=== PATIENT | female | born 1980 | race African-American/Black ===

== ENCOUNTER 2019-11-26 21:09 | Inpatient (IN) | payer MEDICAID ==
[~2019-11-26] VITALS: Ht 175.3 cm; Wt 79.5 kg
--- NOTE | 2019-11-26 21:49 | PHYS DOC ---
Past Medical History Past Medical History: No Pertinent History Past Surgical History: No Surgical History Smoking Status: Current Every Day Smoker Alcohol Use: Heavy Additional Information: Pt verbalized 5th of Vodka a day and 3-4 beers a days too. Social History Narrative: Attepmted to stop drinking by smoking weed General Adult EDM: Chief Complaint: WITHDRAWL HPI: HPI: Patient is a 39 year old female who is a daily drinker with her last drink around 1400 hrs. presents with a chief complaint of alcohol withdrawal. On exam patient with a tremor heart rate is in the 140s and she is dry heaving. Patient states she is trying to stop drinking. She states her last alcohol withdrawal was several months ago. Patient denies any history of alcohol withdrawal seizures. Significant other admitted to [facility] today for alcohol withdrawal. On initial exam heart rate in the 140's and patient dry heaving with diffuse tremor. Review of Systems: Review of Systems: Constitutional: Denies fever or chills. [] Eyes: Denies change in visual acuity. [] HENT: Denies nasal congestion or sore throat. [] Respiratory: Denies cough or shortness of breath. [] Cardiovascular: Denies chest pain or edema. [] GI: Denies abdominal pain, bloody stools or diarrhea. [Positive nausea posit hernan vomiting] : Denies dysuria. [] Musculoskeletal: Denies back pain or joint pain. [] Integument: Denies rash. [] Neurologic: Denies headache, focal weakness or sensory changes. [Positive tremor] Endocrine: Denies polyuria or polydipsia. [] Lymphatic: Denies swollen glands. [] Psychiatric: Denies depression or anxiety. [] Heart Score: Risk Factors: Risk Factors: DM, Current or recent (<one month) smoker, HTN, HLP, family history of CAD, obesity. Risk Scores: Score 0 - 3: 2.5% MACE over next 6 weeks - Discharge Home Score 4 - 6: 20.3% MACE over next 6 weeks - Admit for Clinical Observation Score 7 - 10: 72.7% MACE over next 6 weeks - Early Invasive Strategies Allergies: Allergies: Allergies Coded Allergies Type Severity Reaction Last Updated Verified No Known Drug Allergies 11/26/19 No Physical Exam: PE: Constitutional: Well developed, well nourished, no acute distress, non-toxic appearance. [] HENT: Normocephalic, atraumatic, bilateral external ears normal, oropharynx moist, no oral exudates, nose normal. [Clear nasal drainage] Eyes: PERRLA, EOMI, conjunctiva normal, no discharge. [] Neck: Normal range of motion, no tenderness, supple, no stridor. [] Cardiovascular: no murmur [tachycardic] Lungs & Thorax: Bilateral breath sounds clear to auscultation [] Abdomen: Bowel sounds normal, soft, no tenderness, no masses, no pulsatile masses. [] Skin: Warm, dry, no erythema, no rash. [Skin is flushed] Back: No tenderness, no CVA tenderness. [] Extremities: No tenderness, no cyanosis, no clubbing, ROM intact, no edema. [Swelling bilateral hands] Neurologic: Alert and oriented X 3, normal motor function, normal sensory function, no focal deficits noted. [Diffuse tremor] Psychologic: Affect normal, judgement normal, mood normal. [] Current Patient Data: Labs: Laboratory Tests Test 11/26/19 21:27 POC Urine HCG, Qualitative Hcg negative (Negative) Vital Signs: Vital Signs Date Time Temp Pulse Resp B/P (MAP) Pulse Ox O2 Delivery O2 Flow Rate FiO2 11/26/19 21:16 98.6 125 22 125/81 (96) 97 Room Air 98.6 EKG: EKG: [] Radiology/Procedures: Radiology/Procedures: [] Course & Med Decision Making: Course & Med Decision Making Pertinent Labs and Imaging studies reviewed. (See chart for details) [] After initial examination CBC CMP drug screen EKG alcohol level ordered. Initial treatment included IV fluids and 1 mg of Ativan and Zofran Evaluated by PAT--- patient currently upper 90's-110's heart rate. Blood pressure 100 systolic. Patient tremor continues. Dragon Disclaimer: [employer] Disclaimer: This electronic medical record was generated, in whole or in part, using a voice recognition dictation system. Departure Departure Impression: Primary Impression: Alcohol abuse Additional Impression: Alcohol withdrawal Disposition: ADMITTED INPATIENT Referrals: NO PCP (PCP) Justicifation of Admission Dx: Justifications for Admission: Justification of Admission Dx: N/A MARIA A SWEENEY DO Nov 26, 2019 21:49
[2019-11-26 21:57] LABS: BASO # 0.2 x10^3/uL (0.0-0.2); BASO % 4 % (0-3); EOS # 0.1 x10^3/uL (0.0-0.7); EOS % 1 % (0-3); HEMATOCRIT 34.8 % (36.0-47.0); HEMOGLOBIN 11.6 g/dL (12.0-15.5); LYMPH # 1.6 x10^3/uL (1.0-4.8); LYMPH % 35 % (24-48); MEAN CORPUSCULAR HEMOGLOBIN 32 pg (25-35); MEAN CORPUSCULAR HGB CONC 33 g/dL (31-37); MEAN CORPUSCULAR VOLUME 96 fL (79-100); MONO # 0.6 x10^3/uL (0.0-1.1); MONO % 12 % (0-9); NEUT # 2.3 x10^3/uL (1.8-7.7); NEUT % 48 % (31-73); PLATELET COUNT 130 x10^3/uL (140-400); RED BLOOD COUNT 3.61 x10^6/uL (3.50-5.40); RED CELL DISTRIBUTION WIDTH 20.1 % (11.5-14.5); WHITE BLOOD COUNT 4.7 x10^3/uL (4.0-11.0)
[2019-11-26 22:04] LABS: AMPHETAMINE/METHAMPHETAMINE NEG (NEG); BARBITURATES NEG (NEG); BENZODIAZEPINES NEG (NEG); CANNABINOIDS NEG (NEG); COCAINE NEG (NEG); METHADONE NEG (NEG); OPIATES NEG (NEG); PHENCYCLIDINE NEG (NEG)
[2019-11-26 22:05] LABS: CALCIUM 8.5 mg/dL (8.5-10.1); GFR 74.7; POTASSIUM 3.6 mmol/L (3.5-5.1)
[2019-11-26 22:11] LABS: ALBUMIN 3.9 g/dL (3.4-5.0); TOTAL BILIRUBIN 0.5 mg/dL (0.2-1.0); TOTAL PROTEIN 7.9 g/dL (6.4-8.2)
[2019-11-26] MEDS ORDERED: HALOPERIDOL LACTATE 5 MG/ML VIAL. IVP PRN (23:30)
[2019-11-26] MEDS ORDERED: diphenhydrAMINE 50 MG/ML VIAL IVP PRN (23:30)
[2019-11-26] MEDS ORDERED: cloNIDine HCL 0.1 MG TABLET PO PRN (23:30)
[2019-11-27 00:17] LABS: % BANDS 3 % (0-9); % BASOS 2 % (0-3); % EOS 2 % (0-5); % LYMPHS 57 % (24-48); % MONOS 3 % (0-10); % SEGS 33 % (35-66); ANISOCYTOSIS MOD; PLT ESTIMATE DECREASED (ADEQUATE); TARGET CELLS OCC
[2019-11-27 02:40] VITALS: BP 120/71
[2019-11-27] MEDS: ONDANSETRON PF 4 MG/2 ML VIAL. IV PRN ×3 (03:18→20:07)
[2019-11-27] MEDS ORDERED: MULTIVIT INFUSN,ADULT 4,VIT K 10 ML, THIAMINE INJ 100 MG, FOLIC ACID INJ 1 MG in IV NOR... IV ONE (03:45)
[2019-11-27 05:02] LABS: BASO # 0.1 x10^3/uL (0.0-0.2); BASO % 2 % (0-3); EOS # 0.1 x10^3/uL (0.0-0.7); EOS % 2 % (0-3); HEMATOCRIT 32.1 % (36.0-47.0); HEMOGLOBIN 10.9 g/dL (12.0-15.5); LYMPH # 1.1 x10^3/uL (1.0-4.8); LYMPH % 28 % (24-48); MEAN CORPUSCULAR HEMOGLOBIN 33 pg (25-35); MEAN CORPUSCULAR HGB CONC 34 g/dL (31-37); MEAN CORPUSCULAR VOLUME 96 fL (79-100); MONO # 0.4 x10^3/uL (0.0-1.1); MONO % 10 % (0-9); NEUT # 2.2 x10^3/uL (1.8-7.7); NEUT % 58 % (31-73); PLATELET COUNT 103 x10^3/uL (140-400); RED BLOOD COUNT 3.34 x10^6/uL (3.50-5.40); RED CELL DISTRIBUTION WIDTH 19.9 % (11.5-14.5); WHITE BLOOD COUNT 3.8 x10^3/uL (4.0-11.0)
[2019-11-27 05:16] LABS: ALBUMIN 3.3 g/dL (3.4-5.0); ALBUMIN/GLOBULIN RATIO 0.9 (1.0-1.7); CREATININE 0.9 mg/dL (0.6-1.0); GFR 84.3; POTASSIUM 3.7 mmol/L (3.5-5.1); TOTAL BILIRUBIN 0.6 mg/dL (0.2-1.0); TOTAL PROTEIN 6.9 g/dL (6.4-8.2)
[2019-11-27 07:26] VITALS: BP 125/66
[2019-11-27] MEDS ORDERED: PROCHLORPERAZINE 10 MG/2 ML VIAL. IV PRN (07:30)
--- NOTE | 2019-11-27 08:14 | PDOC1 ---
History and Physical Date of Admission Date of Admission DATE: 11/27/19 TIME: 08:08 Identification/Chief Complaint Chief Complaint Confusion Source Source: Patient History of Present Illness History of Present Illness Ms Hargrove is a 39 yo F w/ PMHx smoker, ETOH use disorder who is a daily drinker with her last drink around 1500 on 11/26/2019. presents with a chief complaint of alcohol withdrawal. On exam patient is dry heaving. Patient states she is trying to stop drinking. She states her last alcohol withdrawal was several months ago. Patient denies any history of alcohol withdrawal seizures. Patient notes her boyfriend was admitted [facility] on 11/26/2027 and she realizes she should be looking for help with her alcohol use disorder as well. She is previously used [facility] and [facility] for alcohol use disorder but has not been on medications for several months. Was on trazodone and Prozac for PTSD as well but stopped taking these. Heart rate in the 140's and patient dry heaving with diffuse tremor. Urine negative. EtOH level 273 at 2148 on 11/26/2019 Labs significant for K3.6 AST 138, ALT 82, albumin 3.3 Initial treatment included IV fluids and 1 mg of Ativan and Zofran Admitted for further treatment. Past Medical History Cardiovascular: No pertinent hx Past Surgical History Past Surgical History: No pertinent history Family History Family History: High Cholestrol, Hypertension Social History Smoke: 1 pack per day ALCOHOL: heavy Drugs: Marijuana Current Problem List Problem List Problems Medical Problems: (1) Alcohol abuse Status: Acute (2) Alcohol withdrawal Status: Acute Current Medications Current Medications Current Medications Lorazepam (Ativan Inj) 1 mg 1X ONCE IVP Last administered on 11/26/19at 21:54; Start 11/26/19 at 22:00; Stop 11/26/19 at 22:01; Status DC Lorazepam (Ativan Inj) 1 mg 1X PRN IVP ANXIETY / AGITATION Last administered on 11/26/19at 23:57; Start 11/26/19 at 23:30 Multivitamins 10 ml/Thiamine HCl 100 mg/Folic Acid 1 mg/Sodium Chloride 1,011.2 ml @ 100 mls/ hr DAILY IV ; Start 11/28/19 at 09:00; Stop 12/01/19 at 19:07 Multivitamins (Thera M Plus) 1 tab DAILY PO ; Start 12/02/19 at 09:00 Folic Acid (Folic Acid) 1 mg DAILY PO ; Start 12/02/19 at 09:00 Thiamine Mononitrate (Vitamin B-1) 100 mg DAILY PO ; Start 12/02/19 at 09:00 Lorazepam (Ativan Inj) 2 mg PRN Q1HR PRN IV For CIWA 8-14 Last administered on 11/27/19at 06:44; Start 11/26/19 at 23:30 Lorazepam (Ativan Inj) 4 mg PRN Q1HR PRN IV For CIWA 15 or greater; Start 11/26/19 at 23:30 Haloperidol Lactate (Haldol Inj) 5 mg PRN Q4HRS PRN IVP Hallucinatns,Confusn,Delirium Last administered on 11/27/19at 07:37; Start 11/26/19 at 23:30 Diphenhydramine HCl (Benadryl) 25 mg PRN Q15MIN PRN IVP EPS symptoms 2'Haldol admin; Start 11/26/19 at 23:30 Clonidine HCl (Catapres) 0.1 mg PRN Q1HR PRN PO SBP > 180 or DBP > 100, MRX3; Start 11/26/19 at 23:30 Ondansetron HCl (Zofran) 4 mg PRN Q8HRS PRN IV NAUSEA/VOMITING Last administered on 11/27/19at 03:18; Start 11/26/19 at 23:30; Stop 11/27/19 at 23:29 Multivitamins 10 ml/Thiamine HCl 100 mg/Folic Acid 1 mg/Sodium Chloride 1,011.2 ml @ 100 mls/ hr 1X ONCE IV Last administered on 11/27/19at 03:55; Start 0 at 03:45; Stop 11/27/19 at 13:51 Prochlorperazine Edisylate (Compazine) 10 mg PRN Q6HRS PRN IV NAUSEA/VOMITING Last administered on 11/27/19at 07:37; Start 11/27/19 at 07:30 Allergies Allergies: Coded Allergies: No Known Drug Allergies (Unverified , 11/26/19) ROS General: YES: Fatigue, Malaise; No: Chills, Night Sweats, Appetite, Other PSYCHOLOGICAL ROS: YES: Anxiety, Behavioral Disorder, Depression, Irritablity, Memory difficulties; No: Concentration difficultie, Decreased libido, Disorientation, Hallucinations, Hostility, Mood Swings, Obsessive thoughts, Physical abuse, Sexual abuse, Sleep disturbances, Suicidal ideation, Other Eyes: No Blurry vision, No Decreased vision, No Double vision, No Dry eyes, No Excessive tearing, No Eye Pain, No Itchy Eyes, No Loss of vision, No Photophobia, No Scotomata, No Uses contacts, No Uses glasses, No Other HEENT: No: Heacaches, Visual Changes, Hearing change, Nasal congestion, Nasal discharge, Oral lesions, Sinus pain, Sore Throat, Epistaxis, Sneezing, Snoring, Tinnitus, Vertigo, Vocal changes, Other ALLERGY AND IMMUNOLOGY: No: Hives, Insect Bite Sensitivity, Itchy/Watery Eyes, Nasal Congestion, Post Nasal Drip, Seasonal Allergies, Other Hematological and Lymphatic: No: Bleeding Problems, Blood Clots, Blood Transfusions, Brusing, Night Sweats, Pallor, Swollen Lymph Nodes, Other ENDOCRINE: No: Breast Changes, Galactorrhea, Hair Pattern Changes, Hot Flashes, Malaise/lethargy, Mood Swings, Palpitations, Polydipsia/polyuria, Skin Changes, Temperature Intolerance, Unexpected Weight Changes, Other Respiratory: No: Cough, Hemoptysis, Orthopnea, Pleuritic Pain, Shortness of breath, SOB with excertion, Sputum Changes, Stridor, Tachypnea, Wheezing, Other Cardiovascular: No Chest Pain, No Palpitations, No Orthopnea, No Paroxysmal Noc. Dyspnea, No Edema, No Lt Headedness, No Other Gastrointestinal: Yes Nausea, Yes Vomiting; No Abdominal Pain, No Diarrhea, No Constipation, No Melena, No Hematochezia, No Other Genitourinary: No Dysuria, No Frequency, No Incontinence, No Hematuria, No Retention, No Discharge, No Urgency, No Pain, No Flank Pain, No Other, No , No , No , No , No , No , No Musculoskeletal: No Gait Disturbance, No Joint Pain, No Joint Stiffness, No Joint Swelling, No Muscle Pain, No Muscular Weakness, No Pain In:, No Swelling In:, No Other Neurological: Yes Dizziness; No Behavorial Changes, No Bowel/Bladder ControlChng, No Confusion, No Gait Disturbance, No Headaches, No Impaired Coord/balance, No Memory Loss, No Numbness/Tingling, No Seizures, No Speech Problems, No Tremors, No Visual Changes, No Weakness, No Other Skin: No Dry Skin, No Eczema, No Hair Changes, No Lumps, No Mole Changes, No Mottling, No Nail Changes, No Pruritus, No Rash, No Skin Lesion Changes, No Other, No Acne Physical Exam General: Alert, Cooperative, moderate distress HEENT: PERRLA, EOMI, Mucous membr. moist/pink, Other (Right periorbital hematoma) Lungs: Clear to auscultation, Normal air movement Heart: S1S2, RRR, no thrills, no rubs, no gallops, no murmurs Abdomen: Normal bowel sounds, Soft, No hepatosplenomegaly, No masses, Other (diffuse tenderness) Extremities: No clubbing, No cyanosis, No edema, Normal pulses, No tenderness/swelling Skin: No rashes, No breakdown, No significant lesion Neuro: Normal tone, Sensation intact, Cranial nerves 3-12 NL, Reflexes 2+, Other (moving all 4 extremities) Psych/Mental Status: Other (Confused, drowsy) Vitals Vitals Vital Signs Date Time Temp Pulse Resp B/P (MAP) Pulse Ox O2 Delivery O2 Flow Rate FiO2 11/27/19 07:26 97.8 94 16 125/66 (85) 98 Room Air 97.8 Labs Labs Laboratory Tests Test 11/26/19 21:18 11/26/19 21:27 11/26/19 21:48 11/27/19 04:00 Urine Opiates Screen Neg (NEG) Urine Methadone Screen Neg (NEG) Urine Barbiturates Neg (NEG) Urine Phencyclidine Screen Neg (NEG) Urine Amphetamine/Methamphetamine Neg (NEG) Urine Benzodiazepines Screen Neg (NEG) Urine Cocaine Screen Neg (NEG) Urine Cannabinoids Screen Neg (NEG) Urine Ethyl Alcohol Pos (NEG) Bedside Urine HCG, Qualitative Hcg negative (Negative) White Blood Count 4.7 x10^3/uL (4.0-11.0) 3.8 x10^3/uL (4.0-11.0) Red Blood Count 3.61 x10^6/uL (3.50-5.40) 3.34 x10^6/uL (3.50-5.40) Hemoglobin 11.6 g/dL (12.0-15.5) 10.9 g/dL (12.0-15.5) Hematocrit 34.8 % (36.0-47.0) 32.1 % (36.0-47.0) Mean Corpuscular Volume 96 fL (79-100) 96 fL (79-100) Mean Corpuscular Hemoglobin 32 pg (25-35) 33 pg (25-35) Mean Corpuscular Hemoglobin Concent 33 g/dL (31-37) 34 g/dL (31-37) Red Cell Distribution Width 20.1 % (11.5-14.5) 19.9 % (11.5-14.5) Platelet Count 130 x10^3/uL (140-400) 103 x10^3/uL (140-400) Neutrophils (%) (Auto) 48 % (31-73) 58 % (31-73) Lymphocytes (%) (Auto) 35 % (24-48) 28 % (24-48) Monocytes (%) (Auto) 12 % (0-9) 10 % (0-9) Eosinophils (%) (Auto) 1 % (0-3) 2 % (0-3) Basophils (%) (Auto) 4 % (0-3) 2 % (0-3) Neutrophils # (Auto) 2.3 x10^3/uL (1.8-7.7) 2.2 x10^3/uL (1.8-7.7) Lymphocytes # (Auto) 1.6 x10^3/uL (1.0-4.8) 1.1 x10^3/uL (1.0-4.8) Monocytes # (Auto) 0.6 x10^3/uL (0.0-1.1) 0.4 x10^3/uL (0.0-1.1) Eosinophils # (Auto) 0.1 x10^3/uL (0.0-0.7) 0.1 x10^3/uL (0.0-0.7) Basophils # (Auto) 0.2 x10^3/uL (0.0-0.2) 0.1 x10^3/uL (0.0-0.2) Segmented Neutrophils % 33 % (35-66) Band Neutrophils % 3 % (0-9) Lymphocytes % 57 % (24-48) Monocytes % 3 % (0-10) Eosinophils % 2 % (0-5) Basophils % 2 % (0-3) Platelet Estimate Decreased (ADEQUATE) Anisocytosis Mod Target Cells Occ Sodium Level 138 mmol/L (136-145) 138 mmol/L (136-145) Potassium Level 3.6 mmol/L (3.5-5.1) 3.7 mmol/L (3.5-5.1) Chloride Level 101 mmol/L (98-107) 101 mmol/L (98-107) Carbon Dioxide Level 26 mmol/L (21-32) 26 mmol/L (21-32) Anion Gap 11 (6-14) 11 (6-14) Blood Urea Nitrogen 8 mg/dL (7-20) 6 mg/dL (7-20) Creatinine 1.0 mg/dL (0.6-1.0) 0.9 mg/dL (0.6-1.0) Estimated GFR (Cockcroft-Gault) 74.7 84.3 BUN/Creatinine Ratio 8 (6-20) 7 (6-20) Glucose Level 95 mg/dL (70-99) 141 mg/dL (70-99) Calcium Level 8.5 mg/dL (8.5-10.1) 8.0 mg/dL (8.5-10.1) Total Bilirubin 0.5 mg/dL (0.2-1.0) 0.6 mg/dL (0.2-1.0) Aspartate Amino Transf (AST/SGOT) 138 U/L (15-37) 108 U/L (15-37) Alanine Aminotransferase (ALT/SGPT) 82 U/L (14-59) 68 U/L (14-59) Alkaline Phosphatase 97 U/L (46-116) 84 U/L (46-116) Total Protein 7.9 g/dL (6.4-8.2) 6.9 g/dL (6.4-8.2) Albumin 3.9 g/dL (3.4-5.0) 3.3 g/dL (3.4-5.0) Albumin/Globulin Ratio 1.0 (1.0-1.7) 0.9 (1.0-1.7) Ethyl Alcohol Level 273 mg/dL (0-10) Laboratory Tests Test 11/26/19 21:18 11/26/19 21:27 11/26/19 21:48 11/27/19 04:00 Urine Opiates Screen Neg (NEG) Urine Methadone Screen Neg (NEG) Urine Barbiturates Neg (NEG) Urine Phencyclidine Screen Neg (NEG) Urine Amphetamine/Methamphetamine Neg (NEG) Urine Benzodiazepines Screen Neg (NEG) Urine Cocaine Screen Neg (NEG) Urine Cannabinoids Screen Neg (NEG) Urine Ethyl Alcohol Pos (NEG) Bedside Urine HCG, Qualitative Hcg negative (Negative) White Blood Count 4.7 x10^3/uL (4.0-11.0) 3.8 x10^3/uL (4.0-11.0) Red Blood Count 3.61 x10^6/uL (3.50-5.40) 3.34 x10^6/uL (3.50-5.40) Hemoglobin 11.6 g/dL (12.0-15.5) 10.9 g/dL (12.0-15.5) Hematocrit 34.8 % (36.0-47.0) 32.1 % (36.0-47.0) Mean Corpuscular Volume 96 fL (79-100) 96 fL (79-100) Mean Corpuscular Hemoglobin 32 pg (25-35) 33 pg (25-35) Mean Corpuscular Hemoglobin Concent 33 g/dL (31-37) 34 g/dL (31-37) Red Cell Distribution Width 20.1 % (11.5-14.5) 19.9 % (11.5-14.5) Platelet Count 130 x10^3/uL (140-400) 103 x10^3/uL (140-400) Neutrophils (%) (Auto) 48 % (31-73) 58 % (31-73) Lymphocytes (%) (Auto) 35 % (24-48) 28 % (24-48) Monocytes (%) (Auto) 12 % (0-9) 10 % (0-9) Eosinophils (%) (Auto) 1 % (0-3) 2 % (0-3) Basophils (%) (Auto) 4 % (0-3) 2 % (0-3) Neutrophils # (Auto) 2.3 x10^3/uL (1.8-7.7) 2.2 x10^3/uL (1.8-7.7) Lymphocytes # (Auto) 1.6 x10^3/uL (1.0-4.8) 1.1 x10^3/uL (1.0-4.8) Monocytes # (Auto) 0.6 x10^3/uL (0.0-1.1) 0.4 x10^3/uL (0.0-1.1) Eosinophils # (Auto) 0.1 x10^3/uL (0.0-0.7) 0.1 x10^3/uL (0.0-0.7) Basophils # (Auto) 0.2 x10^3/uL (0.0-0.2) 0.1 x10^3/uL (0.0-0.2) Segmented Neutrophils % 33 % (35-66) Band Neutrophils % 3 % (0-9) Lymphocytes % 57 % (24-48) Monocytes % 3 % (0-10) Eosinophils % 2 % (0-5) Basophils % 2 % (0-3) Platelet Estimate Decreased (ADEQUATE) Anisocytosis Mod Target Cells Occ Sodium Level 138 mmol/L (136-145) 138 mmol/L (136-145) Potassium Level 3.6 mmol/L (3.5-5.1) 3.7 mmol/L (3.5-5.1) Chloride Level 101 mmol/L (98-107) 101 mmol/L (98-107) Carbon Dioxide Level 26 mmol/L (21-32) 26 mmol/L (21-32) Anion Gap 11 (6-14) 11 (6-14) Blood Urea Nitrogen 8 mg/dL (7-20) 6 mg/dL (7-20) Creatinine 1.0 mg/dL (0.6-1.0) 0.9 mg/dL (0.6-1.0) Estimated GFR (Cockcroft-Gault) 74.7 84.3 BUN/Creatinine Ratio 8 (6-20) 7 (6-20) Glucose Level 95 mg/dL (70-99) 141 mg/dL (70-99) Calcium Level 8.5 mg/dL (8.5-10.1) 8.0 mg/dL (8.5-10.1) Total Bilirubin 0.5 mg/dL (0.2-1.0) 0.6 mg/dL (0.2-1.0) Aspartate Amino Transf (AST/SGOT) 138 U/L (15-37) 108 U/L (15-37) Alanine Aminotransferase (ALT/SGPT) 82 U/L (14-59) 68 U/L (14-59) Alkaline Phosphatase 97 U/L (46-116) 84 U/L (46-116) Total Protein 7.9 g/dL (6.4-8.2) 6.9 g/dL (6.4-8.2) Albumin 3.9 g/dL (3.4-5.0) 3.3 g/dL (3.4-5.0) Albumin/Globulin Ratio 1.0 (1.0-1.7) 0.9 (1.0-1.7) Ethyl Alcohol Level 273 mg/dL (0-10) VTE Prophylaxis Ordered VTE Prophylaxis Devices: No VTE Pharmacological Prophylaxi: No Assessment/Plan Assessment/Plan A/P: Intractable nausea and vomiting - admitted for IV antiemetics Tremors - likely early ETOH withdrawal Hypokalemia - will replace Thrombocytopenia - likely some underlying liver disease Alcoholic hepatitis - trending downward, will monitor Smoker - counseled on cessation, nicotine replacement therapy offered Alcohol use disorder - PAT team to see, needs detox facility on d/c. Will start on gabapentin therapy in addition to CIWA protocol Leukopenia - will trend, likely 2/2 ETOH Anemia - will trend, likely 2/2 ETOH Acute encephalopathy - toxic due to alcohol. will monitor Right periorbital hematoma - appears at least 3-8 days old with early healing, she does not recall or want to discuss PTSD - previously on trazodone FEN - NPO PPX - lovenox FULL CODE Dispo - inpatient Justifications for Admission Other Justification RHYS OJHNSON MD Nov 27, 2019 08:14
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
[2019-11-27 11:01] VITALS: BP 121/79
[2019-11-27] MEDS: GABAPENTIN 100 MG CAPSULE. PO SCH ×2 (13:20→20:05)
[2019-11-27 15:21] VITALS: BP 113/71
[2019-11-27 19:00] VITALS: BP 131/91
[2019-11-27] MEDS ORDERED: NICOTINE 14MG PATCH. TD PRN (22:45)
[2019-11-27 23:00] VITALS: BP 119/77
[2019-11-28 03:00] VITALS: BP 110/70
[2019-11-28 05:54] LABS: BASO % 1 % (0-3); EOS # 0.1 x10^3/uL (0.0-0.7); EOS % 3 % (0-3); HEMATOCRIT 35.3 % (36.0-47.0); HEMOGLOBIN 11.8 g/dL (12.0-15.5); LYMPH # 0.7 x10^3/uL (1.0-4.8); LYMPH % 26 % (24-48); MEAN CORPUSCULAR HEMOGLOBIN 32 pg (25-35); MEAN CORPUSCULAR HGB CONC 33 g/dL (31-37); MEAN CORPUSCULAR VOLUME 97 fL (79-100); MONO # 0.3 x10^3/uL (0.0-1.1); MONO % 10 % (0-9); NEUT # 1.7 x10^3/uL (1.8-7.7); NEUT % 60 % (31-73); PLATELET COUNT 92 x10^3/uL (140-400); RED BLOOD COUNT 3.65 x10^6/uL (3.50-5.40); WHITE BLOOD COUNT 2.8 x10^3/uL (4.0-11.0)
[2019-11-28 06:17] LABS: ALBUMIN 3.1 g/dL (3.4-5.0); ALBUMIN/GLOBULIN RATIO 0.8 (1.0-1.7); CALCIUM 9.2 mg/dL (8.5-10.1); CREATININE 0.9 mg/dL (0.6-1.0); GFR 84.3; POTASSIUM 3.8 mmol/L (3.5-5.1); TOTAL BILIRUBIN 0.9 mg/dL (0.2-1.0); TOTAL PROTEIN 6.8 g/dL (6.4-8.2)
[2019-11-28] MEDS: ONDANSETRON PF 4 MG/2 ML VIAL. IV PRN ×2 (07:13→11:53)
[2019-11-28 07:28] VITALS: BP 130/87
[2019-11-28] MEDS ORDERED: MULTIVIT INFUSN,ADULT 4,VIT K 10 ML, THIAMINE INJ 100 MG, FOLIC ACID INJ 1 MG in IV NOR... IV SCH (09:00)
[2019-11-28] MEDS: GABAPENTIN 100 MG CAPSULE. PO SCH ×2 (09:09→13:53)
--- NOTE | 2019-11-28 11:03 | PDOC ---
PROGRESS NOTES Date of Service: DATE: 11/28/19 TIME: 11:02 Chief Complaint Chief Complaint VTE Prophylaxis Ordered VTE Prophylaxis Devices: No VTE Pharmacological Prophylaxi: No impression Assessment/Plan A/P: Intractable nausea and vomiting - admitted for IV antiemetics Tremors - likely early ETOH withdrawal Hypokalemia - will replace Thrombocytopenia - likely some underlying liver disease Alcoholic hepatitis - trending downward, will monitor Smoker - counseled on cessation, nicotine replacement therapy offered Alcohol use disorder - PAT team to see, needs detox facility on d/c. Will start on gabapentin therapy in addition to CIWA protocol Leukopenia - will trend, likely 2/2 ETOH Anemia - will trend, likely 2/2 ETOH Acute encephalopathy - toxic due to alcohol. 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 presents with a chief complaint of alcohol withdrawal. On exam patient is dry heaving. Patient states she is trying to stop drinking. She states her last alcohol withdrawal was several months ago. Patient denies any history of alcohol withdrawal seizures. Patient notes her boyfriend was admitted [facility] on 11/26/2027 and she realizes she should be looking for help with her alcohol use disorder as well. She is previously used [facility] for alcohol use disorder but has not been on medications for several months. Was on trazodone and Prozac for PTSD as well but stopped taking these. Heart rate in the 140's and patient dry heaving with diffuse tremor. Urine negative. EtOH level 273 at 2148 on 11/26/2019 Labs significant for K3.6 AST 138, ALT 82, albumin 3.3 Initial treatment included IV fluids and 1 mg of Ativan and Zofran Admitted for further treatment. 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 Vitals Vitals Vital Signs Date Time Temp Pulse Resp B/P (MAP) Pulse Ox O2 Delivery O2 Flow Rate FiO2 11/28/19 07:45 Room Air 11/28/19 07:28 97.6 101 20 130/87 (101) 98 97.6 Physical Exam General: Alert, Oriented X3, Cooperative, No acute distress, Other (tearful) Heart: Regular rate, Normal S1, Normal S2 Lungs: Clear Abdomen: Normal bowel sounds, Soft, No hepatosplenomegaly, No masses, Other (diffuse tenderness) Extremities: No clubbing, No cyanosis, No edema, Normal pulses, No tenderness/swelling Skin: No rashes, No breakdown, No significant lesion Labs LABS Laboratory Tests Test 11/28/19 05:03 White Blood Count 2.8 x10^3/uL (4.0-11.0) Red Blood Count 3.65 x10^6/uL (3.50-5.40) Hemoglobin 11.8 g/dL (12.0-15.5) Hematocrit 35.3 % (36.0-47.0) Mean Corpuscular Volume 97 fL (79-100) Mean Corpuscular Hemoglobin 32 pg (25-35) Mean Corpuscular Hemoglobin Concent 33 g/dL (31-37) Red Cell Distribution Width 19.0 % (11.5-14.5) Platelet Count 92 x10^3/uL (140-400) Neutrophils (%) (Auto) 60 % (31-73) Lymphocytes (%) (Auto) 26 % (24-48) Monocytes (%) (Auto) 10 % (0-9) Eosinophils (%) (Auto) 3 % (0-3) Basophils (%) (Auto) 1 % (0-3) Neutrophils # (Auto) 1.7 x10^3/uL (1.8-7.7) Lymphocytes # (Auto) 0.7 x10^3/uL (1.0-4.8) Monocytes # (Auto) 0.3 x10^3/uL (0.0-1.1) Eosinophils # (Auto) 0.1 x10^3/uL (0.0-0.7) Basophils # (Auto) 0.0 x10^3/uL (0.0-0.2) Sodium Level 137 mmol/L (136-145) Potassium Level 3.8 mmol/L (3.5-5.1) Chloride Level 102 mmol/L (98-107) Carbon Dioxide Level 27 mmol/L (21-32) Anion Gap 8 (6-14) Blood Urea Nitrogen 6 mg/dL (7-20) Creatinine 0.9 mg/dL (0.6-1.0) Estimated GFR (Cockcroft-Gault) 84.3 BUN/Creatinine Ratio 7 (6-20) Glucose Level 94 mg/dL (70-99) Calcium Level 9.2 mg/dL (8.5-10.1) Total Bilirubin 0.9 mg/dL (0.2-1.0) Aspartate Amino Transf (AST/SGOT) 94 U/L (15-37) Alanine Aminotransferase (ALT/SGPT) 66 U/L (14-59) Alkaline Phosphatase 88 U/L (46-116) Total Protein 6.8 g/dL (6.4-8.2) Albumin 3.1 g/dL (3.4-5.0) Albumin/Globulin Ratio 0.8 (1.0-1.7) Assessment and Plan Assessmemt and Plan Problems Medical Problems: (1) Alcohol abuse Status: Acute (2) Alcohol withdrawal Status: Acute VTE Prophylaxis Ordered VTE Prophylaxis Devices: No VTE Pharmacological Prophylaxi: No Assessment/Plan Assessment/Plan A/P: Intractable nausea and vomiting - admitted for IV antiemetics Tremors - likely early ETOH withdrawal Hypokalemia - will replace Thrombocytopenia - likely some underlying liver disease Alcoholic hepatitis - trending downward, will monitor Smoker - counseled on cessation, nicotine replacement therapy offered Alcohol use disorder - PAT team to see, needs detox facility on d/c. Will start on gabapentin therapy in addition to CIWA protocol Leukopenia - will trend, likely 2/2 ETOH Anemia - will trend, likely 2/2 ETOH Acute encephalopathy - toxic due to alcohol. will monitor Right periorbital hematoma - appears at least 3-8 days old with early healing, she does not recall or want to discuss PTSD - previously on trazodone FEN - NPO PPX - lovenox FULL CODE Dispo - inpatient DPOA DISCUSSION 17 MIN What Is a Power of Laser Set Up Operator? A power of real estate attorney (POA) is a legal document giving one person (the agent or xjbguilt-he-fhia) the power to act for another person (the principal). The agent can have broad legal authority or limited authority to make legal decisions about the principal's property, finances or medical care. The power of real estate attorney is frequently used in the event of a principal's illness or disability, or when the principal can't be present to sign necessary legal documents for financial transactions. A power of real estate attorney can end for a number of reasons, such as when the principal dies, the principal revokes it, a court invalidates it, the principal divorces their spouse, who happens to be the agent, or the agent can no longer carry out the outlined responsibilities. Conventional POAs lapse when the creator becomes incapacitated, but a durable POA remains in force to enable the agent to manage the creators affairs, and a springing POA comes into effect only if and when the creator of the POA becomes incapacitated. A medical or healthcare POA enables an agent to make medical decisions on behalf of an incapacitated person. A power of real estate attorney (POA) is a legal document giving one person, the agent or houtdnua-iy-nsiq the power to act for another person, the principal. The agent can have broad legal authority or limited authority to make decisions about the principal's property, finances or medical care. The power of real estate attorney is often used when a principal becomes ill or disabled, or when they can't be present to sign necessary legal documents for financial transactions. Understanding Power of Laser Set Up Operator A power of real estate attorney should be considered when planning for long-term care. There are different types of POAs that fall under either a general power of real estate attorney or limited power of real estate attorney. A general power of real estate attorney acts on behalf of the principal in any and all matters, as allowed by the state. The agent under a general POA agreement may be authorized to take care of issues such as handling bank accounts, signing checks, selling property and assets like stocks, f A limited power of real estate attorney gives the agent the power to act on behalf of the principal in specific matters or events. For example, the limited POA may explicitly state that the agent is only allowed to manage the principal's fpc accounts. A limited POA may also be limited to a specific period of time (e.g., if the principal will be out of the country for, say, two years). Most velasquez of real estate attorney documents allow an agent to represent the principal in all property and financial matters as long as the principals mental state of mind is good. If a situation occurs where the principal becomes incapable of making decisions for him or herself, the POA agreement would automatically end. However, someone who wants the POA to remain in effect after the persons health deteriorates would need to sign a durable power of real estate attorney (DPOA). Important:A person appointed as power of real estate attorney is not necessarily an real estate attorney. The person could just be a trusted family member, friend, or acquaintance. Understanding the Durable Power of Laser Set Up Operator (DPOA) The durable power of real estate attorney (DPOA) remains in control of certain legal, property or financial matters specifically spelled out in the agreement, even after the principal becomes mentally incapacitated. While a DPOA can pay medical bills on behalf of the principal, the durable agent cannot make decisions related to the principal's health (e.g., taking the principal off life support is not up to a DPOA). The principal can sign a durable power of real estate attorney for health care, or healthcare power of real estate attorney (HCPA), if he wants an agent to have the power to make health-related decisions. This document also called a healthcare proxy, outlines the principals consent to give the agent POA privileges in the event of an unfortunate medical condition. The durable POA for healthcare is legally bound to oversee medical care decisions on behalf of the principal. Another type of DPOA is the durable power of real estate attorney for finances, or simply a financial power of real estate attorney. This document allows an agent to manage the business and financial affairs of the principal, such as signing checks, filing tax returns, mailing and depositing Social Security checks and managing investment accounts, in the event, the latter becomes unable to understand or make decisions. To the extent of what the agreement spells out as the agents responsibility, the agent has to carry out the principals wishes to the best of his ability. When the agent acts on behalf of the principal by making investment decisions through the information clerk brokerage or medical decisions through the healthcare professional, [facility] institutions would ask to see the DPOA. Although the DPOA for both medical and financial matters can be one document, it is good to have separate DPOA for healthcare and finances. Since the DPOA for healthcare will have the principal's personal medical information, it would be inappropriate for the information clerk brokerage to have it, and the nuclear medicine medical director dont need to know the financial status of the patient either. conditions for which a durable POA may become active are set up in a document called the springing power of real estate attorney. The springing POA defines the kind of event or level of incapacitation that should occur before the DPOA springs into effect. A power of real estate attorney can remain dormant until a negative health occurrence activates it to a DPOA. How Power of Laser Set Up Operator Works You can buy or download a power of real estate attorney template. If you do, be sure it is for your state, as requirements differ. However, this document may be too important to leave to the chance that you got the correct form and handled it properly. A better way to start the process of establishing a power of real estate attorney is by locating an real estate attorney who specializes in family law in your state. If real estate attorney's fees are more than you can afford, legal services offices staffed with credentialed attorneys exist in virtually every part of the [place]. Visit the [employer] website, which has a "Find Felt Finisher" search function. Clients who qualify will receive pro maría elena (cost-free) assistance Many states require that the signature of the principal (the person who initiates the POA) be notarized. Some states also require that witnesses' signatures be notarized. The following provisos apply generally, nationwide, and everyone who needs to create a POA should be aware of them: There is no standard POA form for all states; state law and procedures vary All states accept some version of the durable power of real estate attorney A few chaney velasquez cannot be delegated. These include the authority to do the following: Make, amend, or revoke a will Contract a marriage in most states, although a handful of states allow it Vote (but the guardian may request a ballot on behalf of the principal) While the details may differ, the following rules apply [place] [facility]: Put It in Writing While some regions of the country accept oral POA grants, verbal instruction is not a reliable substitute for getting each of the velasquez of real estate attorney granted to your agent spelled out [id number] on paper. Written clarity helps to avoid arguments and confusion. Use the Proper Format Many variations of power of real estate attorney forms exist. Some POAs are short-lived; others are meant to last until . Decide what velasquez you wish to umesh and prepare a POA specific to that desire. The POA must also satisfy the requirements of your state. To find a form that will be accepted by a court of law in the state in which you live, perform an internet search, check with an office-supply store or ask a local estate-planning professional to help you. The best option is to use an real estate attorney. Identify the Parties The term for the person granting the POA is the "principal." The individual who receives the power of real estate attorney is called either the "agent" or the "dnjrcnsr-eb-pvhg." Check whether your state requires that you use specific terminology. Delegate the Velasquez A POA can be as broad or as limited as the principal wishes. However, each of the velasquez granted must be clear, even if the principal grants the agent "general power of real estate attorney." In other words, the principal cannot umesh sweeping authority such as, I delegate all things having to do with my life. Specify Durability In most states, a power of real estate attorney terminates if the principal is incapacitated. If this happens, the only way an agent can keep his or her velasquez is if the POA was written with an indication that it is "durable," a designation that makes it last for the principal's lifetime unless the principal revokes it. Notarize the POA Many states require velasquez of real estate attorney to be notarized. Even in states that don't, it is potentially much easier for the agent if a notarys seal and signature are on the document. Record It Not all velasquez of real estate attorney must be recorded formally by the county in order to be legal. But recording is standard practice for many estate planners and individuals who want to create a record that the document exists. File It Some states require specific kinds of POAs to be filed with a court or government office before they can be made valid. For instance, [place] requires that any POA used to umesh grandparents guardianship over a child must be filed with the juvenile court. It also requires a POA that transfers real estate to be recorded by the [facility] in which the property is located. Choosing a Power of Laser Set Up Operator Like the property deed for your house or car, a POA grants immense ownership authority and responsibility. It is literally a matter of life and in the case of a medical POA. And you could find yourself facing financial privation or bankruptcy if you end up with a mishandled or abused durable POA. Therefore, you should choose your agent with the greatest of care to ensure your wishes are carried out to the greatest extent possible. It is critical to name a person who is both trustworthy and capable to serve as your agent. This person will act with the same legal authority you would have, so any mistakes made by your agent may be very difficult to correct. Even worse, depending on the extent of the velasquez you umesh, there may be dangerous potential for self-dealing. An agent may have access to your bank accounts, the power to make gifts and transfer your funds, and the ability to sell your property. Your agent can be any competent adult, including a professional such as an attor radha, financial analyst accountant, or banker. But your agent may also be a family member such as a spouse, adult child or another relative. Naming a family member as your agent saves the fees a professional would charge, and may also keep confidential information about your finances and other private matters in the family." Naming Children as Power of Laser Set Up Operator Parents who create POAs very commonly choose adult children to serve as their agents. Compared to naming ones spouse as the agent, the relative youth of the child is an advantage when the purpose of the POA is to relieve an aging parent of the burden of managing the details of financial and investment affairs or provide management for an aging parents affairs should the parent become incapacitated. In these cases, a spouse named as the agent who is near the same age as the person creating the POA may come to suffer the same debilities that led the POAs creator to establish it, defeating its purpose. When the child is honest, capable, and respects the parents desires, this can be the best choice for a POA. When there is more than one child, parents may struggle with the decision of who to select for the role of the agent. This is not a decision to be taken lightly. Your agent named under your POA acts with your authority, so costly financial mistakes resulting from carelessness or lack of financial understanding may be impossible to fix. The same is true of acts that create interfamily conflict by favoring some members over others. Worst of all, when delivered into the wrong hands, a POA can create a veritable license to steal, giving your agent access to your bank accounts and the ability to spend your money and take many other wrongful actions. Children have different characters, skills, and circumstances, and caban selection of children as agents, and of the velasquez given to them, can avert these dangers. The good news is that you can have multiple POAs naming separate agents and customize them for each alicia skill set, temperament, and ability t o act on your behalf. Consider these three chaney factors when choosing which child you want to give important velasquez to under a POA: 1.Trustworthiness: This is the single most important trait of any agent named under a POA. This includes not just honesty but also reliability in performing tasks that need regular attention, from managing an investment portfolio to paying bills, and diligence in acting according to your wishes. 2.Abilities of each child: Specific abilities of different children may make th em best suited to take on particular roles in managing your financial affairs. You can use limited POAs to give different children defined and limited velasquez over different aspects of your finances. These may include the followin.Managing everyday expenses of the family 4.Receiving income from and paying expenses on real estate 5.Controlling a financial portfolio 6.Managing insurance and annuities 7.Running a [employer] small business 8.Multiple agents: More than one agent can be named by a POA, either with the authority to act separately or required to act jointly. Having two children separately authorized to manage routine items can be a convenience if one becomes unavailable for some reason while requiring two to agree on major actions like selling a house can assure family agreement over major decisions. Tip:Say one child is a busy financial expert living in a distant city, while another works part-time and lives conveniently close by. You can have one POA that names the first to manage your investment portfolio and another that names the second to manage your routine daily expenses and pay monthly bills. But naming multiple agents can cause problems if disputes arise between them. For instance, if two children are required to act jointly in managing an investment account but disagree over how to do so, it may be effectively frozen. So when choosing two children to act jointly as agents under a POA, be sure they have not only the skills for the task but personalities to cooperate. Risks of Naming Children as Power of Laser Set Up Operator Mistakesand worse, acts of self-dealingcommitted by your agent can be extremely costly. This is especially so with a durable POA that gives broad control over your affairs during a time when you are incapacitated. You must be convinced that the agent will follow your instructions, has the ability to do so, and will pursue your wishes even over the objections of other family members if need be. Never name a child to be your agent as a matter of fairness, to avoid hurt feelings or to preserve family harmony, if you lack trust. The velasquez are far too important to be granted other than on the merits of trustworthiness and ability. Beware naming a child as your agent if: You experience difficulty, awkwardness, or resistance when explaining to the child the duties to be taken on as your agent under the POA The child may not be available to perform the duties, or not be reliable in doing so due to their own concerns or distractions The child has a history of problems with gambling or substance abuse The child has serious debts or has been irresponsible in managing his/her own finances and affairs The child is engaged in intra-family conflicts that may result is using the velasquez received under the POA to favor some family members over others Risks of Naming a POA Be aware of the dangers of theft and self-dealing created by a POA, even when your agent is your own child. To minimize the risk of such wrongdoing, in addition to the steps mentioned above, have your POA require your agent to report all actions periodically to an outside democrat, such as the familys financial analyst accountant or real estate attorney. In other words, trust but verify. A capable real estate attorney can draft your POA to include these safeguards under your states laws. As family circumstances change, periodically review and update the POAs you have created. You can revoke a POA simply by writing a letter that clearly identifies it and states that you revoke it, and delivering the letter to your former agent. (Some states require such a letter to be notarized.) Its a good idea to also send copies to third parties with whom the agent may have acted on your behalf. Then create a new POA and deliver it to your new choice of agent. A power of real estate attorney can provide you with both convenience and protection by giving a trusted individual the legal authority to act on your behalf and in your interests. Adult children who are both fully trustworthy and capable of accomplishing your wishes may make the best agent under your POA. But dont name a person the agent simply because he or she is your child. Be sure your agent is trustworthy and capable as a first requirement, whomever you name. Getting Your Parents' to Create a Power of Laser Set Up Operator If you are the child as opposed to the parent in this situation, you face a different set of obstacles. Parents often are reluctant to give others power over their affairs. Moreover, a POA applies to individuals, not couples, so the challenge is to convince each parent to create a POA. If you have a parent who is reluctant to do so, try the following ideas to persuade them. Warn of the dangers of not having POAs. If a parent becomes incapacitated and unable to manage his or her own affairs without a POA in place that enables a named agent to step in and do so, then nobody may have the legal right to do so. For instance, nobody may have the right to take TOM distributions the parent needs for income or to borrow funds to pay medical bills or to deal with the IRS concerning the parents taxes. It then will be necessary to go to court to seek to be named as a conservator or guardian for the parent, a course that may prove costly and slowand could be contested, causing family conflicts. Suggest customized POAs for their needs. There are many different kinds of POAs, and a person can have more than one. While a general POA enables the agent to act with the authority of the POAs creator in all matters, a special POA can limit that authority to a specific subject, such as managing an investment account, or to a limited period of time, such as while the creator of the POA is traveling abroad. Convince your parents by crafting one or more POAs to meet a parents specific wishes. You can begin by suggesting a special POA to be used only to provide a convenience that the parent will valuesuch as one that enables you to prepare and file the parents tax return and manage the parents dealings with the IRS. A parent who benefits from one POA is more likely to then become open to using o thers. Ask parents to create POAs for the sake of everyone in the familyincluding the children and grandchildrenwho may be harmed by the complications and costs that result if a parent is incapacitated without a durable POA in place to manage the parents affairs. Have Safeguards The creator of a POA may, and should, be concerned about the risk that the agent will abuse the velasquez received under it. Insure against this by having the POA require that the agent periodically report all actions taken to a trusted third democrat whom family members agree upon, such as the [facility] electric shovel operator or financial analyst accountant. Or have them name two agents and require they agree on major transactions, such as the sale of a home. Persons of all ages gain valuable protection from having a durable POA, as one can become unexpectedly incapacitated at any stage of life. One way to encourage a reluctant parent to create a durable POA is to create one for yourself and ask your parents to join you by doing the same. Consult Trusted Advisors Trusted professional advisors, such as a electric shovel operator, financial analyst accountant, and doctor, can help persuade parents of the wisdom and necessity of adopting POAs. Obtaining POAs from your parents can provide valuable benefits to both them and the entire family. If they are reluctant to umesh broad velasquez at once, you may still be able to convince them to do so gradually. But dont delay, or there may be costly consequences. A person must be mentally competent to create a power of real estate attorney. Once a parent loses the capability to manage his or her own affairs it is too late, and court proceedings likely will be necessary. Special Considerations There are many good reasons to make a power of real estate attorney, as it ensures that someone will look after your financial affairs if you become incapacitated. You should choose a trusted family member, a proven friend, or a reputable and honest professional. Remember, however, that signing a power of real estate attorney that grants broad authority to an agent is very much like signing a blank checkso make sure you choose wisely and understand the laws that apply to the document. Comment Review of Relevant I have reviewed the following items lalitha (where applicable) has been applied. Labs Laboratory Tests Test 11/26/19 21:18 11/26/19 21:27 11/26/19 21:48 11/27/19 04:00 Urine Opiates Screen Neg (NEG) Urine Methadone Screen Neg (NEG) Urine Barbiturates Neg (NEG) Urine Phencyclidine Screen Neg (NEG) Urine Amphetamine/Methamphetamine Neg (NEG) Urine Benzodiazepines Screen Neg (NEG) Urine Cocaine Screen Neg (NEG) Urine Cannabinoids Screen Neg (NEG) Urine Ethyl Alcohol Pos (NEG) Bedside Urine HCG, Qualitative Hcg negative (Negative) White Blood Count 4.7 x10^3/uL (4.0-11.0) 3.8 x10^3/uL (4.0-11.0) Red Blood Count 3.61 x10^6/uL (3.50-5.40) 3.34 x10^6/uL (3.50-5.40) Hemoglobin 11.6 g/dL (12.0-15.5) 10.9 g/dL (12.0-15.5) Hematocrit 34.8 % (36.0-47.0) 32.1 % (36.0-47.0) Mean Corpuscular Volume 96 fL (79-100) 96 fL (79-100) Mean Corpuscular Hemoglobin 32 pg (25-35) 33 pg (25-35) Mean Corpuscular Hemoglobin Concent 33 g/dL (31-37) 34 g/dL (31-37) Red Cell Distribution Width 20.1 % (11.5-14.5) 19.9 % (11.5-14.5) Platelet Count 130 x10^3/uL (140-400) 103 x10^3/uL (140-400) Neutrophils (%) (Auto) 48 % (31-73) 58 % (31-73) Lymphocytes (%) (Auto) 35 % (24-48) 28 % (24-48) Monocytes (%) (Auto) 12 % (0-9) 10 % (0-9) Eosinophils (%) (Auto) 1 % (0-3) 2 % (0-3) Basophils (%) (Auto) 4 % (0-3) 2 % (0-3) Neutrophils # (Auto) 2.3 x10^3/uL (1.8-7.7) 2.2 x10^3/uL (1.8-7.7) Lymphocytes # (Auto) 1.6 x10^3/uL (1.0-4.8) 1.1 x10^3/uL (1.0-4.8) Monocytes # (Auto) 0.6 x10^3/uL (0.0-1.1) 0.4 x10^3/uL (0.0-1.1) Eosinophils # (Auto) 0.1 x10^3/uL (0.0-0.7) 0.1 x10^3/uL (0.0-0.7) Basophils # (Auto) 0.2 x10^3/uL (0.0-0.2) 0.1 x10^3/uL (0.0-0.2) Segmented Neutrophils % 33 % (35-66) Band Neutrophils % 3 % (0-9) Lymphocytes % 57 % (24-48) Monocytes % 3 % (0-10) Eosinophils % 2 % (0-5) Basophils % 2 % (0-3) Platelet Estimate Decreased (ADEQUATE) Anisocytosis Mod Target Cells Occ Sodium Level 138 mmol/L (136-145) 138 mmol/L (136-145) Potassium Level 3.6 mmol/L (3.5-5.1) 3.7 mmol/L (3.5-5.1) Chloride Level 101 mmol/L (98-107) 101 mmol/L (98-107) Carbon Dioxide Level 26 mmol/L (21-32) 26 mmol/L (21-32) Anion Gap 11 (6-14) 11 (6-14) Blood Urea Nitrogen 8 mg/dL (7-20) 6 mg/dL (7-20) Creatinine 1.0 mg/dL (0.6-1.0) 0.9 mg/dL (0.6-1.0) Estimated GFR (Cockcroft-Gault) 74.7 84.3 BUN/Creatinine Ratio 8 (6-20) 7 (6-20) Glucose Level 95 mg/dL (70-99) 141 mg/dL (70-99) Calcium Level 8.5 mg/dL (8.5-10.1) 8.0 mg/dL (8.5-10.1) Total Bilirubin 0.5 mg/dL (0.2-1.0) 0.6 mg/dL (0.2-1.0) Aspartate Amino Transf (AST/SGOT) 138 U/L (15-37) 108 U/L (15-37) Alanine Aminotransferase (ALT/SGPT) 82 U/L (14-59) 68 U/L (14-59) Alkaline Phosphatase 97 U/L (46-116) 84 U/L (46-116) Total Protein 7.9 g/dL (6.4-8.2) 6.9 g/dL (6.4-8.2) Albumin 3.9 g/dL (3.4-5.0) 3.3 g/dL (3.4-5.0) Albumin/Globulin Ratio 1.0 (1.0-1.7) 0.9 (1.0-1.7) Ethyl Alcohol Level 273 mg/dL (0-10) Lipase 282 U/L (73-393) Test 11/28/19 05:03 White Blood Count 2.8 x10^3/uL (4.0-11.0) Red Blood Count 3.65 x10^6/uL (3.50-5.40) Hemoglobin 11.8 g/dL (12.0-15.5) Hematocrit 35.3 % (36.0-47.0) Mean Corpuscular Volume 97 fL (79-100) Mean Corpuscular Hemoglobin 32 pg (25-35) Mean Corpuscular Hemoglobin Concent 33 g/dL (31-37) Red Cell Distribution Width 19.0 % (11.5-14.5) Platelet Count 92 x10^3/uL (140-400) Neutrophils (%) (Auto) 60 % (31-73) Lymphocytes (%) (Auto) 26 % (24-48) Monocytes (%) (Auto) 10 % (0-9) Eosinophils (%) (Auto) 3 % (0-3) Basophils (%) (Auto) 1 % (0-3) Neutrophils # (Auto) 1.7 x10^3/uL (1.8-7.7) Lymphocytes # (Auto) 0.7 x10^3/uL (1.0-4.8) Monocytes # (Auto) 0.3 x10^3/uL (0.0-1.1) Eosinophils # (Auto) 0.1 x10^3/uL (0.0-0.7) Basophils # (Auto) 0.0 x10^3/uL (0.0-0.2) Sodium Level 137 mmol/L (136-145) Potassium Level 3.8 mmol/L (3.5-5.1) Chloride Level 102 mmol/L (98-107) Carbon Dioxide Level 27 mmol/L (21-32) Anion Gap 8 (6-14) Blood Urea Nitrogen 6 mg/dL (7-20) Creatinine 0.9 mg/dL (0.6-1.0) Estimated GFR (Cockcroft-Gault) 84.3 BUN/Creatinine Ratio 7 (6-20) Glucose Level 94 mg/dL (70-99) Calcium Level 9.2 mg/dL (8.5-10.1) Total Bilirubin 0.9 mg/dL (0.2-1.0) Aspartate Amino Transf (AST/SGOT) 94 U/L (15-37) Alanine Aminotransferase (ALT/SGPT) 66 U/L (14-59) Alkaline Phosphatase 88 U/L (46-116) Total Protein 6.8 g/dL (6.4-8.2) Albumin 3.1 g/dL (3.4-5.0) Albumin/Globulin Ratio 0.8 (1.0-1.7) Laboratory Tests Test 11/28/19 05:03 White Blood Count 2.8 x10^3/uL (4.0-11.0) Red Blood Count 3.65 x10^6/uL (3.50-5.40) Hemoglobin 11.8 g/dL (12.0-15.5) Hematocrit 35.3 % (36.0-47.0) Mean Corpuscular Volume 97 fL (79-100) Mean Corpuscular Hemoglobin 32 pg (25-35) Mean Corpuscular Hemoglobin Concent 33 g/dL (31-37) Red Cell Distribution Width 19.0 % (11.5-14.5) Platelet Count 92 x10^3/uL (140-400) Neutrophils (%) (Auto) 60 % (31-73) Lymphocytes (%) (Auto) 26 % (24-48) Monocytes (%) (Auto) 10 % (0-9) Eosinophils (%) (Auto) 3 % (0-3) Basophils (%) (Auto) 1 % (0-3) Neutrophils # (Auto) 1.7 x10^3/uL (1.8-7.7) Lymphocytes # (Auto) 0.7 x10^3/uL (1.0-4.8) Monocytes # (Auto) 0.3 x10^3/uL (0.0-1.1) Eosinophils # (Auto) 0.1 x10^3/uL (0.0-0.7) Basophils # (Auto) 0.0 x10^3/uL (0.0-0.2) Sodium Level 137 mmol/L (136-145) Potassium Level 3.8 mmol/L (3.5-5.1) Chloride Level 102 mmol/L (98-107) Carbon Dioxide Level 27 mmol/L (21-32) Anion Gap 8 (6-14) Blood Urea Nitrogen 6 mg/dL (7-20) Creatinine 0.9 mg/dL (0.6-1.0) Estimated GFR (Cockcroft-Gault) 84.3 BUN/Creatinine Ratio 7 (6-20) Glucose Level 94 mg/dL (70-99) Calcium Level 9.2 mg/dL (8.5-10.1) Total Bilirubin 0.9 mg/dL (0.2-1.0) Aspartate Amino Transf (AST/SGOT) 94 U/L (15-37) Alanine Aminotransferase (ALT/SGPT) 66 U/L (14-59) Alkaline Phosphatase 88 U/L (46-116) Total Protein 6.8 g/dL (6.4-8.2) Albumin 3.1 g/dL (3.4-5.0) Albumin/Globulin Ratio 0.8 (1.0-1.7) Medications Current Medications Lorazepam (Ativan Inj) 1 mg 1X ONCE IVP Last administered on 11/26/19at 21:54; Start 11/26/19 at 22:00; Stop 11/26/19 at 22:01; Status DC Lorazepam (Ativan Inj) 1 mg 1X PRN IVP ANXIETY / AGITATION Last administered on 11/26/19at 23:57; Start 11/26/19 at 23:30; Stop 11/27/19 at 10:01; Status DC Multivitamins 10 ml/Thiamine HCl 100 mg/Folic Acid 1 mg/Sodium Chloride 1,011.2 ml @ 100 mls/ hr DAILY IV Last administered on 11/28/19at 09:09; Start 11/28/19 at 09:00; Stop 12/01/19 at 19:07 Multivitamins (Thera M Plus) 1 tab DAILY PO ; Start 12/02/19 at 09:00 Folic Acid (Folic Acid) 1 mg DAILY PO ; Start 12/02/19 at 09:00 Thiamine Mononitrate (Vitamin B-1) 100 mg DAILY PO ; Start 12/02/19 at 09:00 Lorazepam (Ativan Inj) 2 mg PRN Q1HR PRN IV For CIWA 8-14 Last administered on 11/28/19at 07:13; Start 11/26/19 at 23:30 Lorazepam (Ativan Inj) 4 mg PRN Q1HR PRN IV For CIWA 15 or greater Last administered on 11/28/19at 09:27; Start 11/26/19 at 23:30 Haloperidol Lactate (Haldol Inj) 5 mg PRN Q4HRS PRN IVP Hallucinatns,Confusn,Delirium Last administered on 11/27/19at 07:37; Start 11/26/19 at 23:30 Diphenhydramine HCl (Benadryl) 25 mg PRN Q15MIN PRN IVP EPS symptoms 2'Haldol admin Last administered on 11/27/19at 10:33; Start 11/26/19 at 23:30 Clonidine HCl (Catapres) 0.1 mg PRN Q1HR PRN PO SBP > 180 or DBP > 100, MRX3; Start 11/26/19 at 23:30 Ondansetron HCl (Zofran) 4 mg PRN Q8HRS PRN IV NAUSEA/VOMITING Last administered on 11/27/19at 10:33; Start 11/26/19 at 23:30; Stop 11/27/19 at 11:11; Status DC Multivitamins 10 ml/Thiamine HCl 100 mg/Folic Acid 1 mg/Sodium Chloride 1,011.2 ml @ 100 mls/ hr 1X ONCE IV Last administered on 11/27/19at 03:55; Start 11/27/19 at 03:45; Stop 11/27/19 at 13:51; Status DC Prochlorperazine Edisylate (Compazine) 10 mg PRN Q6HRS PRN IV NAUSEA/VOMITING Last administered on 11/27/19at 07:37; Start 11/27/19 at 07:30 Ondansetron HCl (Zofran) 4 mg PRN Q4HRS PRN IV NAUSEA/VOMITING Last administered on 11/28/19at 07:13; Start 11/27/19 at 11:15 Gabapentin (Neurontin) 100 mg TID PO Last administered on 11/28/19at 09:09; Start 11/27/19 at 14:00 Nicotine (Nicoderm Cq 14mg) 1 patch PRN DAILY PRN TD SMOKING CESSATION; Start 11/27/19 at 22:45 Vitals/I & O Vital Sign - Last 24 Hours 11/27/19 11/27/19 11/27/19 11/27/19 15:21 19:00 20:00 23:00 Temp 97.9 98.5 98.3 97.9 98.5 98.3 Pulse 105 62 104 Resp 20 22 24 B/P (MAP) 113/71 (85) 131/91 (104) 119/77 (91) Pulse Ox 97 98 95 O2 Delivery Room Air Room Air Room Air Room Air 11/28/19 11/28/19 11/28/19 03:00 07:28 07:45 Temp 97.9 97.6 97.9 97.6 Pulse 97 101 Resp 20 B/P (MAP) 110/70 (83) 130/87 (101) Pulse Ox 98 98 O2 Delivery Room Air Room Air Room Air Intake and Output 11/27/19 11/27/19 11/28/19 15:00 23:00 07:00 Intake Total 200 ml 180 ml Output Total 0 ml Balance 200 ml 180 ml Justicifation of Admission Dx: Justifications for Admission: Justification of Admission Dx: N/A IMAN GALEANO MD Nov 28, 2019 11:02
[2019-11-28 11:05] VITALS: BP 139/70
[2019-11-28] MEDS ORDERED: PANTOPRAZOLE 40 MG TABLET.DR. PO SCH (15:00)
[2019-11-28 15:10] VITALS: BP 126/76
--- NOTE | 2019-11-28 16:49 | PDOC1 ---
History & Psych Evaluation Date of Service: DOS: DATE: 11/28/19 TIME: 16:49 Source: Source: Caregiver, Chart review, Patient Identification: Identification 39-year-old female with history of depression and alcohol use disorder Chief Complaint: Chief Complaint Alcohol intoxication, depression and anxiety History of Present Illness: HPI: She is a 39-year-old female with history of alcohol use disorder admitted with alcohol intoxication/withdrawal. She is reportedly drinking heavily at these days. Upon interview, she appears cooperative and interactive. However, she continues to cry and tearful. She is worried about her boyfriend who is also admitted in the hospital. He states, she is wanting to give up on alcohol. However, lately they have been drinking heavily, reportedly drinking 1 to 2 L of vodka every day . States, she was sober for a while and relapsed 2 months ago. She has previous history of outpatient alcohol rehab at [facility]. Aside from that she reports depression when abusing alcohol also anxiety. States, when she is sober, she hardly feels any depression or anxiety. Anxiety is more pronounced when she is coming out of alcohol. She denies history of suicidal attempt. She denies history of complicated alcohol withdrawals including DTs, seizures, or alcohol hallucinosis. States usually she has shakes and chills. She denies auditory or visual hallucinations or prior psychotic break. Denies history of bipolar mood disorder or sarah or hypomania. Past Psychiatric History: History of hospital admissions for alcohol intoxication. She has history of alcohol rehab at [facility]. Denies history of psychiatric hospital admission. Denies previous suicidal attempt. Past Medical History: Hypertension Dyslipidemia. Family History: Family history of depression and anxiety. Denies history of suicidality in the family. Social History: Social History: Reporting she is homeless. Her home keys and car keys are locked in her car. States, she cannot afford to hire someone. Requesting the help of security to take care of the issue. She has a history of marijuana abuse. Smokes 1 pack of cigarettes daily. Alcohol use is as above Current Medications: Current Medications Current Medications Medications (Trade) Dose Ordered Sig/Teddy Start Time Stop Time Status Last Admin Dose Admin Clonidine HCl (Catapres) 0.1 mg PRN Q1HR PRN 11/26/19 23:30 Diphenhydramine HCl (Benadryl) 25 mg PRN Q15MIN PRN 11/26/19 23:30 11/27/19 10:33 25 MG Folic Acid (Folic Acid) 1 mg DAILY 12/02/19 09:00 Gabapentin (Neurontin) 100 mg TID 11/27/19 14:00 11/28/19 13:53 100 MG Haloperidol Lactate (Haldol Inj) 5 mg PRN Q4HRS PRN 11/26/19 23:30 11/27/19 07:37 5 MG Lorazepam (Ativan Inj) 4 mg PRN Q1HR PRN 11/26/19 23:30 11/28/19 15:26 4 MG Multivitamins (Thera M Plus) 1 tab DAILY 12/02/19 09:00 Multivitamins 10 ml/Thiamine HCl 100 mg/Folic Acid 1 mg/Sodium Chloride 1,011.2 ml @ 100 mls/ hr 1X ONCE 11/27/19 03:45 11/27/19 13:51 DC 11/27/19 03:55 100 MLS/HR Nicotine (Nicoderm Cq 14mg) 1 patch PRN DAILY PRN 11/27/19 22:45 Ondansetron HCl (Zofran) 4 mg PRN Q4HRS PRN 11/27/19 11:15 11/28/19 11:53 4 MG Pantoprazole Sodium (Protonix) 40 mg DAILYAC 11/28/19 15:00 11/28/19 15:26 40 MG Prochlorperazine Edisylate (Compazine) 10 mg PRN Q6HRS PRN 11/27/19 07:30 11/27/19 07:37 10 MG Thiamine Mononitrate (Vitamin B-1) 100 mg DAILY 12/02/19 09:00 Allergies: Allergies: Coded Allergies: No Known Drug Allergies (Unverified , 11/26/19) Mental Status Examination: Mental Status Examination female appears her stated age Cooperative and interactive however crying Alert and oriented Thought processes goal-directed Denies auditory or visual hallucinations Denies suicidal or homicidal thoughts No abnormal perceptions noted Mood is depressed and anxious Affect is dysthymic Impulse control, insight, and judgment are limited. Recent and remote memory intact. Attention span and concentration fair. ROS: Psychiatric review of system is otherwise negative except for as stated above. Physical Exam: Refer to Physician's note. PROGRAM MANAGER RN: No focal deficit MSK: No EPS, TDK, or abnormal involuntary movements Vitals: Vitals Vital Signs Date Time Temp Pulse Resp B/P (MAP) Pulse Ox O2 Delivery O2 Flow Rate FiO2 11/28/19 15:10 97.9 108 22 126/76 (93) 98 Room Air 97.9 Labs: Labs Laboratory Tests Test 11/26/19 21:18 11/26/19 21:27 11/26/19 21:48 11/27/19 04:00 Urine Opiates Screen Neg (NEG) Urine Methadone Screen Neg (NEG) Urine Barbiturates Neg (NEG) Urine Phencyclidine Screen Neg (NEG) Urine Amphetamine/Methamphetamine Neg (NEG) Urine Benzodiazepines Screen Neg (NEG) Urine Cocaine Screen Neg (NEG) Urine Cannabinoids Screen Neg (NEG) Urine Ethyl Alcohol Pos (NEG) Bedside Urine HCG, Qualitative Hcg negative (Negative) White Blood Count 4.7 x10^3/uL (4.0-11.0) 3.8 x10^3/uL (4.0-11.0) Red Blood Count 3.61 x10^6/uL (3.50-5.40) 3.34 x10^6/uL (3.50-5.40) Hemoglobin 11.6 g/dL (12.0-15.5) 10.9 g/dL (12.0-15.5) Hematocrit 34.8 % (36.0-47.0) 32.1 % (36.0-47.0) Mean Corpuscular Volume 96 fL (79-100) 96 fL (79-100) Mean Corpuscular Hemoglobin 32 pg (25-35) 33 pg (25-35) Mean Corpuscular Hemoglobin Concent 33 g/dL (31-37) 34 g/dL (31-37) Red Cell Distribution Width 20.1 % (11.5-14.5) 19.9 % (11.5-14.5) Platelet Count 130 x10^3/uL (140-400) 103 x10^3/uL (140-400) Neutrophils (%) (Auto) 48 % (31-73) 58 % (31-73) Lymphocytes (%) (Auto) 35 % (24-48) 28 % (24-48) Monocytes (%) (Auto) 12 % (0-9) 10 % (0-9) Eosinophils (%) (Auto) 1 % (0-3) 2 % (0-3) Basophils (%) (Auto) 4 % (0-3) 2 % (0-3) Neutrophils # (Auto) 2.3 x10^3/uL (1.8-7.7) 2.2 x10^3/uL (1.8-7.7) Lymphocytes # (Auto) 1.6 x10^3/uL (1.0-4.8) 1.1 x10^3/uL (1.0-4.8) Monocytes # (Auto) 0.6 x10^3/uL (0.0-1.1) 0.4 x10^3/uL (0.0-1.1) Eosinophils # (Auto) 0.1 x10^3/uL (0.0-0.7) 0.1 x10^3/uL (0.0-0.7) Basophils # (Auto) 0.2 x10^3/uL (0.0-0.2) 0.1 x10^3/uL (0.0-0.2) Segmented Neutrophils % 33 % (35-66) Band Neutrophils % 3 % (0-9) Lymphocytes % 57 % (24-48) Monocytes % 3 % (0-10) Eosinophils % 2 % (0-5) Basophils % 2 % (0-3) Platelet Estimate Decreased (ADEQUATE) Anisocytosis Mod Target Cells Occ Sodium Level 138 mmol/L (136-145) 138 mmol/L (136-145) Potassium Level 3.6 mmol/L (3.5-5.1) 3.7 mmol/L (3.5-5.1) Chloride Level 101 mmol/L (98-107) 101 mmol/L (98-107) Carbon Dioxide Level 26 mmol/L (21-32) 26 mmol/L (21-32) Anion Gap 11 (6-14) 11 (6-14) Blood Urea Nitrogen 8 mg/dL (7-20) 6 mg/dL (7-20) Creatinine 1.0 mg/dL (0.6-1.0) 0.9 mg/dL (0.6-1.0) Estimated GFR (Cockcroft-Gault) 74.7 84.3 BUN/Creatinine Ratio 8 (6-20) 7 (6-20) Glucose Level 95 mg/dL (70-99) 141 mg/dL (70-99) Calcium Level 8.5 mg/dL (8.5-10.1) 8.0 mg/dL (8.5-10.1) Total Bilirubin 0.5 mg/dL (0.2-1.0) 0.6 mg/dL (0.2-1.0) Aspartate Amino Transf (AST/SGOT) 138 U/L (15-37) 108 U/L (15-37) Alanine Aminotransferase (ALT/SGPT) 82 U/L (14-59) 68 U/L (14-59) Alkaline Phosphatase 97 U/L (46-116) 84 U/L (46-116) Total Protein 7.9 g/dL (6.4-8.2) 6.9 g/dL (6.4-8.2) Albumin 3.9 g/dL (3.4-5.0) 3.3 g/dL (3.4-5.0) Albumin/Globulin Ratio 1.0 (1.0-1.7) 0.9 (1.0-1.7) Ethyl Alcohol Level 273 mg/dL (0-10) Lipase 282 U/L (73-393) Test 11/28/19 05:03 White Blood Count 2.8 x10^3/uL (4.0-11.0) Red Blood Count 3.65 x10^6/uL (3.50-5.40) Hemoglobin 11.8 g/dL (12.0-15.5) Hematocrit 35.3 % (36.0-47.0) Mean Corpuscular Volume 97 fL (79-100) Mean Corpuscular Hemoglobin 32 pg (25-35) Mean Corpuscular Hemoglobin Concent 33 g/dL (31-37) Red Cell Distribution Width 19.0 % (11.5-14.5) Platelet Count 92 x10^3/uL (140-400) Neutrophils (%) (Auto) 60 % (31-73) Lymphocytes (%) (Auto) 26 % (24-48) Monocytes (%) (Auto) 10 % (0-9) Eosinophils (%) (Auto) 3 % (0-3) Basophils (%) (Auto) 1 % (0-3) Neutrophils # (Auto) 1.7 x10^3/uL (1.8-7.7) Lymphocytes # (Auto) 0.7 x10^3/uL (1.0-4.8) Monocytes # (Auto) 0.3 x10^3/uL (0.0-1.1) Eosinophils # (Auto) 0.1 x10^3/uL (0.0-0.7) Basophils # (Auto) 0.0 x10^3/uL (0.0-0.2) Sodium Level 137 mmol/L (136-145) Potassium Level 3.8 mmol/L (3.5-5.1) Chloride Level 102 mmol/L (98-107) Carbon Dioxide Level 27 mmol/L (21-32) Anion Gap 8 (6-14) Blood Urea Nitrogen 6 mg/dL (7-20) Creatinine 0.9 mg/dL (0.6-1.0) Estimated GFR (Cockcroft-Gault) 84.3 BUN/Creatinine Ratio 7 (6-20) Glucose Level 94 mg/dL (70-99) Calcium Level 9.2 mg/dL (8.5-10.1) Total Bilirubin 0.9 mg/dL (0.2-1.0) Aspartate Amino Transf (AST/SGOT) 94 U/L (15-37) Alanine Aminotransferase (ALT/SGPT) 66 U/L (14-59) Alkaline Phosphatase 88 U/L (46-116) Total Protein 6.8 g/dL (6.4-8.2) Albumin 3.1 g/dL (3.4-5.0) Albumin/Globulin Ratio 0.8 (1.0-1.7) Laboratory Tests Test 11/28/19 05:03 White Blood Count 2.8 x10^3/uL (4.0-11.0) Red Blood Count 3.65 x10^6/uL (3.50-5.40) Hemoglobin 11.8 g/dL (12.0-15.5) Hematocrit 35.3 % (36.0-47.0) Mean Corpuscular Volume 97 fL (79-100) Mean Corpuscular Hemoglobin 32 pg (25-35) Mean Corpuscular Hemoglobin Concent 33 g/dL (31-37) Red Cell Distribution Width 19.0 % (11.5-14.5) Platelet Count 92 x10^3/uL (140-400) Neutrophils (%) (Auto) 60 % (31-73) Lymphocytes (%) (Auto) 26 % (24-48) Monocytes (%) (Auto) 10 % (0-9) Eosinophils (%) (Auto) 3 % (0-3) Basophils (%) (Auto) 1 % (0-3) Neutrophils # (Auto) 1.7 x10^3/uL (1.8-7.7) Lymphocytes # (Auto) 0.7 x10^3/uL (1.0-4.8) Monocytes # (Auto) 0.3 x10^3/uL (0.0-1.1) Eosinophils # (Auto) 0.1 x10^3/uL (0.0-0.7) Basophils # (Auto) 0.0 x10^3/uL (0.0-0.2) Sodium Level 137 mmol/L (136-145) Potassium Level 3.8 mmol/L (3.5-5.1) Chloride Level 102 mmol/L (98-107) Carbon Dioxide Level 27 mmol/L (21-32) Anion Gap 8 (6-14) Blood Urea Nitrogen 6 mg/dL (7-20) Creatinine 0.9 mg/dL (0.6-1.0) Estimated GFR (Cockcroft-Gault) 84.3 BUN/Creatinine Ratio 7 (6-20) Glucose Level 94 mg/dL (70-99) Calcium Level 9.2 mg/dL (8.5-10.1) Total Bilirubin 0.9 mg/dL (0.2-1.0) Aspartate Amino Transf (AST/SGOT) 94 U/L (15-37) Alanine Aminotransferase (ALT/SGPT) 66 U/L (14-59) Alkaline Phosphatase 88 U/L (46-116) Total Protein 6.8 g/dL (6.4-8.2) Albumin 3.1 g/dL (3.4-5.0) Albumin/Globulin Ratio 0.8 (1.0-1.7) Diagnosis: Diagnosis: 1alcohol use disorder, recurrent, severe 2alcohol intoxication/withdrawal in context of alcohol use disorder 3unspecified depression, rule out major depressive disorder 4unspecified anxiety disorder, rule out generalized anxiety disorder 5-rule out substance-induced anxiety and depression Assessment: She is a young female with a history of alcohol use disorder admitted with alcohol intoxication. Additionally, she is a struggling with depression and anxiety likely complicated by her consistent alcohol use. She is interested in rehab as an outpatient at [facility] where she had been in the past. She is in agreement to make medication changes which includes increasing gabapentin. Plan: Increase gabapentin to 300 mg 3 times a day. Continue CIWA for alcohol withdrawal with Ativan. Continue folic acid and thiamine. Risks, benefits, alternatives of the treatment are discussed. She is in agreement with plan and voiced understanding. Adverse drug reaction of the medications including the black box warnings were also discussed. Consider adding antidepressant previously on Prozac. Monitor for symptomatology, withdrawals, and adverse drug reaction. Will make medication changes accordingly SADIA HALLMAN MD Nov 28, 2019 16:49
--- NOTE | 2019-11-28 17:55 | NUR ---
At 1745 patient walked by nursing station with backpack in hand. I asked where she was going and she stated that she was leaving. I made sure that her IV was out and it was, she had removed it herself; and then proceeded to walk with her down to ER to ensure that she made it downstairs okay. She stated that her keys were locked in the car, so I pointed out security to her. I asked her if she was okay, and she stated she was fine.
[2019-12-02] MEDS ORDERED: MULTIVITAMIN with MINERAL TABLET. PO SCH (09:00)
[2019-12-02] MEDS ORDERED: THIAMINE 100 MG TABLET. PO SCH (09:00)
[2019-12-02] MEDS ORDERED: FOLIC ACID 1 MG TABLET. PO SCH (09:00)
== END 2019-11-28 17:45 | disposition left against medical advice (07) | DRG 432 ==
LOC: ER 21:09 → 5 NORTH 11-27 01:29 → OBSVTOIN 11-27 11:22
PROVIDERS: ADMIT Internal Medicine; ATTEND Internal Medicine
DX: K70.10 Alcoholic hepatitis without ascites (principal); G92 Toxic encephalopathy; F10.239 Alcohol dependence with withdrawal, unspecified; F43.10 Post-traumatic stress disorder, unspecified; F17.210 Nicotine dependence, cigarettes, uncomplicated; E87.6 Hypokalemia; D69.6 Thrombocytopenia, unspecified; D64.9 Anemia, unspecified; D72.819 Decreased white blood cell count, unspecified; F32.9 Major depressive disorder, single episode, unspecified; F41.9 Anxiety disorder, unspecified; Z71.6 Tobacco abuse counseling; Z59.0 Homelessness; Z82.49 Family history of ischemic heart disease and other diseases of the circulatory system
CPT/HCPCS: 36415; 80053; 80307; 81025; 83690; 85007; 85025; 96374; 96375; 99285; G0378; G0379; G0480; J0780; J1200; J1630; J2060; J2405; J3411; J3490; J7030